=== PATIENT | male | born 1945 | race Caucasian/White ===

== ENCOUNTER 2017-12-21 11:43 | Inpatient (IN) ==
--- NOTE | 2017-12-21 12:35 | XR ---
EXAM DATE: 12/21/2017 12:34 PM EDT AGE/SEX: 72 years / Male INDICATIONS: Pre op bronchoscopy, short of breath. CLINICAL DATA: This is the patient's initial encounter. Patient reports that signs and symptoms have been present for 1 day and indicates a pain score of 0/10. MEDICAL/SURGICAL HISTORY: Diabetes mellitus type II. Pancreatitis. . Endoscopy COMPARISON: POI, XR CHEST PA AND LAT, 11/23/2017. . FINDINGS: A single frontal expiratory view of the chest was performed. Large left pleural effusion. Left basila r density. Right lung clear Mediastinal structures are in the midline. CONCLUSION: Large left pleural effusion and left basilar density. Electronically signed by: Galo Casarez MD 12/21/2017 12:34 PM EDT
[2017-12-21] MEDS ORDERED: Metoprolol Tartrate 25 MG Tablet PO ONE (12:38)
[2017-12-21] MEDS ORDERED: Chlorhexidine Gluconate 2% 1 Pack (2 Cloths) TOPICAL ONE (12:38)
[2017-12-21] MEDS ORDERED: RESP: Albuterol Concentrated 2.5 MG/0.5 ML Neb NEB SCH (12:45)
[2017-12-21] MEDS ORDERED: RESP: Lidocaine PF 4% 5 ML Neb NEB SCH (12:45)
[2017-12-21] MEDS ORDERED: Sodium Chlor 0.9% Inj 500 ML IV.SIG ONE (13:00)
[2017-12-21] MEDS ORDERED: Dextrose 50% in Water 50 ML Vial IV.PUSH PRN (13:54)
--- NOTE | 2017-12-21 14:08 | P.HPIM ---
History of Present Illness Primary Care Physician: Galo Paniagua Chief Complaint: Cough History of Present Illness: This patient is a 72-year-old male with a diagnosis of diabetes mellitus type 2. Patient follows up with doggy daycare activities director Dr. Staton and was initially evaluated in mid September due to a large left-sided pleural effusion. At that time the patient had a thoracentesis done and results of the pleural fluid analysis were concerning for malignancy. After initial thoracentesis the patient's left- sided pleural effusion reaccumulated approximately 5 weeks after requiring another thoracentesis. He was seen in the radiology outpatient procedure unit today by Dr. Staton for a bronchoscopy however an x-ray prior to the procedure showed reaccumulation of the effusion on the left side. The patient is an active individual and is currently asymptomatic without any complaints of shortness of breath. I was called by Dr. Staton to evaluate the patient and admit him given the large left-sided pleural effusion which is likely malignant. Patient denies any chest pain, no diarrhea, no fevers or chills. Past medical history diabetes mellitus type 2 Past surgical history none Family history noncontributory Social history the patient previously smoked possibly 1 pack/day for almost 10 years however quit 38 years ago. He drinks 1-2 beers per week. He denies any history of drug use Review of Systems All other systems reviewed negative except as stated in HPI PMF - History History Provided By: Patient - Medical History Medical History: Medical History (Last Updated 12/17/17 @ 11:39 by Patti August RN) Diabetes Gastritis Hx of hepatitis Hx of laceration of skin Hx of pancreatitis Hx of pleural effusion Mass of lung Teeth missing Wears glasses - Surgical History Surgical History: Surgical History (Last Updated 12/17/17 @ 11:19 by Patti August RN) History of esophagogastroduodenoscopy (EGD) Hx of colonoscopy - Tobacco History Second Hand Smoke Exposure: No Smoking Status: Never smoker - Alcohol History How Often Do You Have a Drink Containing Alcohol: 2 to 4 times a month - Substance Use History Substance History: No History of Abuse - Travel History Recent Travel in the [facility] Within the Last 8 Weeks: No Recent Travel Out of the Country Within the Last 8 Weeks: No Medications and Allergies Active Medications: Active Medications Albuterol (Albuterol Concentrated Neb) 2.5 mg NEB TABLET TECHNICIAN BERRY Stop: 12/25/17 12:44 Dextrose (D50w Vial) 50 ml IV.PUSH UNSCH PRN PRN Reason: PER HYPOGLYCEMIA PROTOCOL Glucagon (Glucagon Inj) 1 mg OTHER PRN PRN PRN Reason: for Hypoglycemia Protocol Dextrose/Sodium Chloride (D5w/1/2 Ns Inj) 1,000 mls @ 30 mls/hr IV.CONT .Q24H BERRY Lactated Ringer's (Lr 1000 Ml Inj) 1,000 mls @ 30 mls/hr IV.SIG .Q24H BERRY Stop: 12/22/17 12:44 Sodium Chloride (Ns Inj) 500 mls @ 30 mls/hr IV.SIG .Q10H ONE Stop: 12/22/17 05:39 Insulin Aspart (Novolog Insulin Correctional Sugar Inj) 0 unit SQ ACHS BERRY; Protocol Lidocaine HCl (Lidocaine Pf 4% Neb) 3 ml NEB TABLET TECHNICIAN BERRY Stop: 12/25/17 12:44 Allergies Allergy/AdvReac Type Severity Reaction Status Date / Time shellfish derived Allergy Severe Vomiting Verified 12/21/17 11:59 Home Medications Medication Instructions Recorded Confirmed Type ascorbate [id number] [Vitamin 2 gm PO DAILY 12/17/17 12/21/17 History C] cholecalciferol (vitamin D3) 5,000 unit PO DAILY 12/17/17 12/21/17 History [Vitamin D3] cinnamon bark [Cinnamon] 2 cap PO DAILY 12/17/17 12/21/17 History coenzyme Q10 [Co Q-10] 100 mg PO DAILY 12/17/17 12/21/17 History metformin 500 mg PO BID 12/17/17 12/21/17 History vitamin B complex 1 tab PO DAILY 12/17/17 12/21/17 History Exam Vital signs: Vital Signs 12/21/17 11:59 Temperature 98.4 F Pulse Rate 84 Respiratory Rate 18 Blood Pressure 152/92 H Pulse Oximetry 95 Intake & Output 12/20/17 12/21/17 12/21/17 18:59 06:59 18:59 Weight 64.864 kg Other: Weight On Admission 64.864 kg Narrative: General patient in no acute distress HEENT extraocular movements are intact, clear oropharyngeal mucosa, no JVD Cardiovascular S1-S2 audible, RRR, no murmurs rubs or gallops Respiratory right-sided is clear to auscultation, decreased breath sounds at the left mid and lower lung. Abdomen soft, nontender, nondistended, normal bowel sounds Extremities no edema 2+ distal pulses in bilateral upper and lower extremities Neuro no neurological deficits. Patient can move all 4 extremities and his sensation is intact bilaterally. Results - Imaging Impressions Chest X-Ray 12/21/17 11:55 CONCLUSION: Large left pleural effusion and left basilar density. Caprini VTE Risk Assessment Caprini VTE Risk Assessment: Moderate/High Risk (score >= 2) Caprini Risk Assessment Model: Point Value = 1 Point Value = 2 Point Value = 3 Point Value = 5 Age 41-60 Minor surgery BMI > 25 kg/m2 Swollen legs Varicose veins or History of unexplained or recurrent spontaneous Oral contraceptives or hormone replacement Sepsis (< 1 month) Serious lung disease, including pneumonia (< 1 month) Abnormal pulmonary function Acute myocardial infarction Congestive heart failure (< 1 month) History of inflammatory bowel disease Medical patient at bed rest Age 61-74 Arthroscopic surgery Major open surgery (> 45 min) Laparoscopic surgery (> 45 min) Malignancy Confined to bed (> 72 hours) Immobilizing plaster cast Central venous access Age >= 75 History of VTE Family history of VTE Factor V Leiden Prothrombin [id number] Lupus anticoagulant Anticardiolipin antibodies Elevated serum homocysteine Heparin-induced thrombocytopenia Other congenital or acquired thrombophilia Stroke (< 1 month) Elective arthroplasty Hip, pelvis, or leg fracture Acute spinal cord injury (< 1 month) Prophylaxis Regimen: Total Risk Factor Score Risk Level Prophylaxis Regimen 0-1 Low Early ambulation 2 Moderate Order ONE of the following: *Sequential Compression Device (SCD) *Heparin 5000 units SQ BID 3-4 Higher Order ONE of the following medications: *Heparin 5000 units SQ TID *Enoxaparin/Lovenox 40 mg SQ daily (WT < 150 kg, CrCl > 30 mL/min) *Enoxaparin/Lovenox 30 mg SQ daily (WT < 150 kg, CrCl > 10-29 mL/min) *Enoxaparin/Lovenox 30 mg SQ BID (WT < 150 kg, CrCl > 30 mL/min) AND/OR *Sequential Compression Device (SCD) 5 or more Highest Order ONE of the following medications: *Heparin 5000 units SQ TID (Preferred with Epidurals) *Enoxaparin/Lovenox 40 mg SQ daily (WT < 150 kg, CrCl > 30 mL/min) *Enoxaparin/Lovenox 30 mg SQ daily (WT < 150 kg, CrCl > 10-29 mL/min) *Enoxaparin/Lovenox 30 mg SQ BID (WT < 150 kg, CrCl > 30 mL/min) AND *Sequential Compression Device (SCD) Assessment and Plan - Plan This patient is a 72-year-old male with a diagnosis of diabetes mellitus type 2. Patient follows up with doggy daycare activities director Dr. Staton and was initially evaluated in mid September due to a large left-sided pleural effusion. At that time the patient had a thoracentesis done and results of the pleural fluid analysis were concerning for malignancy. After initial thoracentesis the patient's left- sided pleural effusion reaccumulated approximately 5 weeks after requiring another thoracentesis. He was seen in the radiology outpatient procedure unit today by Dr. Staton for a bronchoscopy however an x-ray prior to the procedure showed reaccumulation of the effusion on the left side. The patient is an active individual and is currently asymptomatic without any complaints of shortness of breath. I was called by Dr. Staton to evaluate the patient and admit him given the large left-sided pleural effusion which is likely malignant. 1. Large recurrent left-sided pleural effusion As mentioned above the patient was scheduled for bronchoscopy today however chest x-ray showed a large recurrent left-sided pleural effusion. Dr. Staton has discussed the case with thoracic surgery who will evaluate the patient today for pleuroscopy. A consult was placed with thoracic surgery and I will follow-up with the recommendations. The patient is currently on room air with an O2 saturation of 95%. He currently does not have any complaints of shortness of breath. We will continue to monitor the patient and his oxygen saturation level. We will wait for recommendations from thoracic surgery. Labs ordered including CBC, BMP, PT/INR. 2. Diabetes mellitus type 2 Low-dose insulin sliding scale. DVT prophylaxis, no pharmacotherapy for DVT prophylaxis as the patient may possibly undergo a procedure today. H&P: Quality - VTE Deep Vein Thrombosis/Pulmonary Embolism Present on Admission: No
[2017-12-21] MEDS: Dextrose 5%/NaCl 0.45% Inj 1,000 ML IV.CONT SCH (15:44)
--- NOTE | 2017-12-21 19:06 | MB ---
cc: Umer Staton MD, Murthy MD DATE: 12/21/2017 HISTORY OF PRESENT ILLNESS: Mr. Deleon is a 80-year-old white male whom I have known for the last 6 weeks or so, originally presented with a large left pleural effusion. 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 He has subsequently been readmitted as an outpatient, twice for recurrent effusion. I spoke with his oncologist, Dr. Vasquez, about a week ago, at which time apparently they did not have enough cells from the pleural fluid to do biologic markers. For that reason, we were planning on doing a bronchoscopy on him to try to obtain additional tissue. However, the patient has had some increase in shortness of breath and in light of the prior rapid recurrence of fluid, we did a chest x-ray today, which revealed a very large left pleural effusion, almost total opacification on the left. For this reason, the bronchoscopy was canceled and the patient is being admitted. I spoke to Dr. Anitra Richardson from thoracic surgery, as I think it would be more helpful to do a pleuroscopy, possibly obtain additional tissue by that means for molecular markers, and also do a pleurodesis to prevent this reaccumulation of fluid. The patient is being admitted by the hospitalist. At the time of the admission, I saw the patient in the radiology outpatient unit. He was awake, alert, comfortable with normal saturations. No significant pain or shortness of breath at rest. He was a former smoker, but quite minimal, only about 5-6 years, a pack per day, quit smoking over 30 years ago. ADDITIONAL PAST MEDICAL HISTORY: Type 2 diabetes, pancreatitis, not alcohol related. SOCIAL HISTORY: , living with his . Drinks 1-2 beers a week. Smoking noted above. They do have a cat and dog at home. He enjoys motorcycling. He is a retired senior electrical design engineer. CURRENT MEDICATIONS: 1. Metformin. 2. Multiple vitamin. ALLERGIES: SHELLFISH. REVIEW OF SYSTEMS: No chest pain. No hemoptysis. No fever, no increased edema. PHYSICAL EXAMINATION: GENERAL: Awake, alert. VITAL SIGNS: Patient is afebrile, pulse is 80, respirations are 18 at rest. No adenopathy palpable in the neck or supraclavicular region. Absent breath sounds on the left. Regular rhythm. No significant edema or cyanosis. DISCUSSION: Mr. Deleon presents with known adenocarcinoma and pleural fluid on the left, but now rapid reaccumulation again. I think a definitive procedure to sclerose the left pleural space would be helpful and at the same time, it may be possible to do pleural biopsies if disease is noted at pleuroscopy, and provide adequate tissue for molecular markers. I have reviewed this plan with Mr. Deleon and his , they are agreeable. I have also spoken to Dr. Richardson and Dr. Hinkle, who will be admitting. Further diagnostic and/or therapeutic intervention will depend on these studies and his ongoing clinical course. R. MD HARISH Snow/alejandra/patricia , 04:24 PM , 04:31 PM
[2017-12-21] MEDS: Insulin NovoLOG Aspart Correctional Sugar Inj SQ SCH ×2 (19:54→21:50)
[2017-12-21 21:28] LABS: Baso % (Auto) 0.3 % (0.0-2.0); Eos # (Auto) 0.2 th/mm3 (0.0-0.4); Eos % (Auto) 2.1 % (0.0-4.0); Hematocrit 39.7 % (39.0-51.0); Hemoglobin 13.9 gm/dL (13.0-17.0); Lymph # (Auto) 1.6 th/mm3 (1.0-4.8); Lymph % (Auto) 21.8 % (9.0-44.0); Mean Corpuscular Hemoglobin 32.2 pg (27.0-34.0); Mean Platelet Volume 9.1 fL (7.0-11.0); Mono # (Auto) 0.6 th/mm3 (0.0-0.9); Mono % (Auto) 7.8 % (0.0-8.0); Platelet Count 173 th/mm3 (150-450); Red Blood Count 4.32 mil/mm3 (4.50-5.90); Red Cell Distribution Width 13.1 % (11.6-17.2); White Blood Count 7.3 th/mm3 (4.0-11.0)
[2017-12-21 21:38] LABS: Prothrombin Time 10.5 sec (9.8-11.6)
[2017-12-21 21:44] LABS: Anion Gap 8 meq/L (5-15); Blood Urea Nitrogen 10 mg/dL (7-18); Calcium 9.4 mg/dL (8.5-10.1); Carbon Dioxide 28.1 meq/L (21.0-32.0); Chloride 103 meq/L (98-107); Glomerular Filtration Rate Greater Than 89 mL/min (>89); Glucose,Random 156 mg/dL (74-106); Magnesium 2.1 mg/dL (1.5-2.5); Potassium 4.2 meq/L (3.5-5.1); Sodium 139 meq/L (136-145)
[2017-12-22] MEDS: Insulin NovoLOG Aspart Correctional Sugar Inj SQ SCH ×4 (10:17→22:38)
[2017-12-22] MEDS ORDERED: Sodium Chloride 0.9% Irr Bot 500 ML, ceFAZolin Inj 500 MG IRRIGATION SCH ×2 (13:15)
[2017-12-22] MEDS ORDERED: Chlorhexidine 4% Topical 120 APPLIC/120 ML Bottle TOPICAL SCH (13:15)
[2017-12-22] MEDS ORDERED: ceFAZolin Inj 2,000 MG in Sodium Chlor 0.9% Inj 80 ML IV.SIG SCH (14:00)
--- NOTE | 2017-12-22 14:52 | MB ---
cc: Shirlene Richardson MD DATE: 12/22/2017 HISTORY OF PRESENT ILLNESS: A patient of Dr. Adams Staton, Dr. Jose Vasquez and also Tanmay Hernandez, nurse practitioner, who initially was seen by the primary care on 09/30/2017 for a checkup. Apparently, he had some abnormal breath sounds and was sent for chest x-ray. The radiologist was reading the chest x-ray and notified the patient that he needed to go to the emergency department. The patient had been feeling bloated, had trouble eating. He was treated for some duodenitis. They did a CTA scan of the lung and found a lesion in his left lung, concern for metastatic disease. He underwent a thoracentesis, which drained 3 liters at that time ,and then a second time, he had another 2.2 liters drained about 3 weeks ago. The patient was brought in outpatient for a possible bronchoscopy. The x-ray revealed a very large left effusion with almost total opacification on the left. We were consulted to evaluate for thorascopic drainage of the pleural effusion, pleural biopsy and pleurodesis. PAST MEDICAL HISTORY: Includes type 2 diabetes, pancreatitis, hepatitis A in the past. PAST SURGICAL HISTORY: None. ALLERGIES: SHELLFISH. HOME MEDICATIONS: Include: 1. Metformin. 2. Multivitamin. FAMILY HISTORY: Father from old age. Mother from lupus lung. Brother from liver cancer. SOCIAL HISTORY: The patient is and lives with his . Drinks 1-2 beers a week. Smoked for about 6 years, 1 pack per day, quit over 30 years ago. Retired from electrical engineering. Enjoys motorcycle riding. He had traveled to [email or web address] in May for 2 weeks. REVIEW OF SYSTEMS: GENERAL: No night sweats, fever, heat or cold intolerance. SKIN: No psoriasis, itching or hives. HEENT: No blurred vision, hearing loss. RESPIRATORY: Positive from some occasional shortness of breath. CARDIOTHORACIC: No chest pain. No paroxysmal nocturnal dyspnea. No orthopnea. GASTROINTESTINAL: No further diarrhea, vomiting or constipation. GENITOURINARY: No burning, frequency, urgency. CENTRAL NERVOUS SYSTEM: No history of TIA, CVA or seizure disorder. ENDOCRINOLOGY: Positive for diabetes. PHYSICAL EXAMINATION: VITAL SIGNS: Blood pressure 160/80, heart rate 80, T-max 97.9. GENERAL: The patient is awake, alert, in no acute distress. HEENT: Head is normocephalic, atraumatic. Pupils equal and reactive. Oral mucosa pink, moist. NECK: Supple. No JVD. HEART: Sounds S1, S2. Regular rate and rhythm. No audible rubs, murmurs, gallops. LUNGS: Very diminished in the left lower and middle lobe area. ABDOMEN: Soft, nontender. No masses or organomegaly. EXTREMITIES: No cyanosis, clubbing or edema. LABORATORY DATA: Shows hemoglobin 13.9, hematocrit 39, white cell count 7, platelet count 173. Sodium 139, potassium 4.2, BUN 10, creatinine 0.7. INR 1.0. Chest x-ray showed a large left pleural effusion, left basilar density. IMPRESSION: This is a 72-year-old pleasant male with a large left pleural effusion, prior thoracentesis x 2 with pleural fluid showing adenocarcinoma on the prior fluid exam. PLAN: At this time, the patient is being evaluated and will be scheduled for a left thorascopic exploration to drain pleural effusion, pleural biopsy and pleurodesis for . He will be a third case. He will be n.p.o. after midnight. Dictated by PERCY Huynh I personally interviewed and examined this patient on 12/22/17. He has a malignant left pleural effusion and more tissue is needed for pathology. He also would benefit from drainage and pleurodesis. I spent ~30 minutes with him and his discussing the plan for surgery and he agrees to proceed. MD OZ Huerta/rita , 01:14 PM , 01:23 PM LIBBY
[2017-12-22] MEDS: Dextrose 5%/NaCl 0.45% Inj 1,000 ML IV.CONT SCH (19:42)
[2017-12-23] MEDS ORDERED: Sugammadex Inj 200 MG/2 ML Vial IV.PUSH ONE (07:59)
[2017-12-23] MEDS ORDERED: Bupivacaine 0.5% Inj 50 ML MDV Vial ONE (08:04)
[2017-12-23] MEDS ORDERED: ceFAZolin 2 GM Premix Inj 2 GM/50 ML PIGGYBACK IV.SIG ONE (08:05)
[2017-12-23] MEDS ORDERED: Sodium Chlor 0.9% Inj 500 ML IV.CONT ONE (08:30)
[2017-12-23] MEDS ORDERED: Metoprolol Tartrate 25 MG Tablet PO ONE (08:30)
[2017-12-23] MEDS ORDERED: Chlorhexidine Gluconate 2% 1 Pack (2 Cloths) TOPICAL ONE (08:30)
[2017-12-23] MEDS ORDERED: Talc Aerosol Sterile 4 GM/30 GM Aerosol Can I-PLEURAL ONE (09:29)
[2017-12-23] MEDS ORDERED: Bisacodyl 10 MG Supp RECTAL PRN (11:43)
[2017-12-23] MEDS ORDERED: Post-op Orders (for Pharmacy) OTHER STA (11:43)
--- NOTE | 2017-12-23 11:52 | P.OP ---
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 A small posterior port incision was performed and electrocautery was used to obtain hemostasis and carry the dissection down through the fascia. A 22G seeker needle was used initially posteriorly and serosanguious fluid was aspirated. A port was initially placed posteriorly followed by the camera. Visualization was very good. Overall, 1400 ml of serosanguinous effusion was drained. Fluid was submitted for cytology. The patient had a prior specimen with adenocarcinoma. A second anterior port was positioned at ~6th intercostal space. Exploration of the left hemithorax was significant for hyperemic pleura with diffuse tumor studding. Pleural biopsies were performed. Pleural biopsies were sent to Pathology. A talc pleuradesis was performed through both ports. A 28F chest tube was positioned through the anterior port, and secured with a 0-silk suture. An air leak was sealed with Tisseel. The lung was ventilated and no significant air leaks were found. The subcutaneous tissues of the posterior port was approximated running 2-0 Vicryl suture and the skin was approximated using running 4-0 Monocryl subcuticular stitch. All sponge and history counts were correct at the close the procedure and the patient was transferred to the PACU for recovery purposes.
[2017-12-23] MEDS ORDERED: fentaNYL Citrate Inj 100 MCG/2 ML Ampul ONE (12:16)
[2017-12-23] MEDS ORDERED: *Meperidine Inj 25 MG/ML Vial PERIprocedural Use ONLY ONE (12:21)
--- NOTE | 2017-12-23 12:57 | XR ---
EXAM DATE: 12/23/2017 12:49 PM EDT AGE/SEX: 72 years / Male INDICATIONS: Post-op thoracoscopy with pleurodesis. CLINICAL DATA: This is the patient's subsequent encounter. Patient reports that signs and symptoms h ave been present for 3 days and indicates a pain score of 0/10. MEDICAL/SURGICAL HISTORY: Diabetes mellitus type II. None. COMPARISON: [facility] [place], CHEST EXPIRATION ONLY, 12/21/2017. . FINDINGS: The patient has left-sided chest tube. There is left-sided pneumothorax inferiorly and laterally. The some atelectasis right lower lobe. No right-sided pneumothorax identified. CONCLUSION: Chest tube and pneumothorax on the left side. Pneumothorax measures approximately 1 centimeter across in the inferior two thirds of the chest. Electronically signed by: Romero Blackmon MD 12/23/2017 12:56 PM EDT
[2017-12-23] MEDS: Insulin NovoLOG Aspart Correctional Sugar Inj SQ SCH ×2 (14:20→18:40)
[2017-12-23] MEDS: ceFAZolin 1 GM Premix Inj 1 GM/50 ML FROZ.PIGGY IV.SIG SCH (18:52)
[2017-12-23] MEDS: Senna/Docusate Sodium 8.6/50 MG Tablet PO SCH (21:21)
[2017-12-24] MEDS: ceFAZolin 1 GM Premix Inj 1 GM/50 ML FROZ.PIGGY IV.SIG SCH ×2 (02:51→11:00)
[2017-12-24 05:02] LABS: Baso % (Auto) 0.1 % (0.0-2.0); Eos % (Auto) 0.1 % (0.0-4.0); Hematocrit 41.3 % (39.0-51.0); Lymph # (Auto) 1.2 th/mm3 (1.0-4.8); Lymph % (Auto) 11.5 % (9.0-44.0); Mean Corpuscular HGB Conc 33.9 % (32.0-36.0); Mean Corpuscular Hemoglobin 31.8 pg (27.0-34.0); Mean Corpuscular Volume 93.8 fL (80.0-100.0); Mono # (Auto) 0.8 th/mm3 (0.0-0.9); Mono % (Auto) 7.5 % (0.0-8.0); Neut # (Auto) 8.5 th/mm3 (1.8-7.7); Neut % (Auto) 80.8 % (16.0-70.0); Platelet Count 173 th/mm3 (150-450); Red Cell Distribution Width 13.1 % (11.6-17.2); White Blood Count 10.6 th/mm3 (4.0-11.0)
[2017-12-24 05:20] LABS: Anion Gap 8 meq/L (5-15); Blood Urea Nitrogen 8 mg/dL (7-18); Calcium 8.8 mg/dL (8.5-10.1); Carbon Dioxide 27.1 meq/L (21.0-32.0); Chloride 103 meq/L (98-107); Glomerular Filtration Rate Greater Than 89 mL/min (>89); Glucose,Random 151 mg/dL (74-106); Sodium 138 meq/L (136-145)
--- NOTE | 2017-12-24 05:46 | XR ---
EXAM DATE: 12/24/2017 5:33 AM EDT AGE/SEX: 72 years / Male INDICATIONS: Shortness of breath CLINICAL DATA: This is the patient's subsequent encounter. Patient reports that signs and symptoms h ave been present for 4 - 6 days and indicates a pain score of 0/10. MEDICAL/SURGICAL HISTORY: Diabetes mellitus type II. None. COMPARISON: C, CHEST 1V SINGLE AP, 12/23/2017. . FINDINGS: The cardiac silhouette is normal in transverse diameter. There is an unchanged pneumothorax at the l eft base with left chest tube present. There is subsegmental atelectasis in the both bases. There are no signs of tension. CONCLUSION: Unchanged left pneumothorax without tension Electronically signed by: Colten Vicente MD 12/24/2017 5:44 AM EDT
[2017-12-24] MEDS: Insulin NovoLOG Aspart Correctional Sugar Inj SQ SCH ×3 (08:31→16:50)
--- NOTE | 2017-12-24 10:14 | P.PNCV ---
- Note Subjective/Hospital Course: Dr. Adams Staton, Dr. Jose Vasquez and also Tanmay Hernandez, nurse practitioner, who initially was seen by the primary care on 09/30/2017 for a checkup. Apparently, he had some abnormal breath sounds and was sent for chest x-ray. The radiologist was reading the chest x-ray and notified the patient that he needed to go to the emergency department. The patient had been feeling bloated, had trouble eating. He was treated for some duodenitis. They did a CTA scan of the lung and found a lesion in his left lung, concern for metastatic disease. He underwent a thoracentesis, which drained 3 liters at that time ,and then a second time, he had another 2.2 liters drained about 3 weeks ago. The patient was brought in outpatient for a possible bronchoscopy. The x-ray revealed a very large left effusion with almost total opacification on the left. We were consulted to evaluate for thorascopic drainage of the pleural effusion, pleural biopsy and pleurodesis. PAST MEDICAL HISTORY: Includes type 2 diabetes, pancreatitis, hepatitis A in the past. 12/23 surgery: Left thoracoscopic exploration for drainage of malignant pleural effusion, pleural biopsies, talc pleurodesis 12/24 chest tube drained 300cc/ 12 hrs / serous drainage, pain controlled / leave tube to suction for now OOB ambulate pulm toileting Objective: Vital Signs - 24 hr 12/23/17 12:02 12/23/17 12:15 12/23/17 12:30 Temperature 96.6 F L Pulse Rate 74 72 74 Respiratory Rate 20 19 17 Blood Pressure 140/73 126/69 124/72 Pulse Oximetry 99 99 98 12/23/17 12:45 12/23/17 13:00 12/23/17 13:04 Temperature Pulse Rate 71 73 Respiratory Rate 19 15 Blood Pressure 133/69 130/70 Pulse Oximetry 98 97 99 12/23/17 13:30 12/23/17 14:00 12/23/17 15:00 Temperature Pulse Rate 72 78 75 Respiratory Rate 17 19 17 Blood Pressure 129/67 129/72 138/76 Pulse Oximetry 96 97 98 12/23/17 16:00 12/23/17 17:00 12/23/17 18:00 Temperature Pulse Rate 74 81 90 Respiratory Rate 17 20 16 Blood Pressure 141/67 H 145/74 H 117/63 Pulse Oximetry 99 97 96 12/23/17 18:30 12/23/17 19:45 12/23/17 20:00 Temperature 98 F 98.2 F 98.2 F Pulse Rate 81 70 77 Respiratory Rate 17 18 17 Blood Pressure 121/58 L 148/64 H 139/65 Pulse Oximetry 96 92 L 93 L 12/23/17 21:00 12/24/17 00:00 12/24/17 03:00 Temperature 98.2 F 98.0 F 98.1 F Pulse Rate 93 H 97 H 98 H Respiratory Rate 18 18 18 Blood Pressure 151/70 H 141/67 H 159/72 H Pulse Oximetry 94 L 94 L 94 L 12/24/17 08:00 Temperature 98.8 F Pulse Rate 91 H Respiratory Rate 18 Blood Pressure 136/72 Pulse Oximetry 93 L GENERAL: A&O x 3 SKIN: Warm and dry. left posterior incision intact / HEAD: Normocephalic. EYES: No scleral icterus. No injection or drainage. NECK: Supple, trachea midline. No JVD or lymphadenopathy. CARDIOVASCULAR: Regular rate and rhythm without murmurs, gallops, or rubs. RESPIRATORY: Breath sounds equal bilaterally. No accessory muscle use. diminished left lower lobe, left chest tube to wall suction, no air leak GASTROINTESTINAL: Abdomen soft, non-tender, nondistended. MUSCULOSKELETAL: No cyanosis, or edema. BACK: Nontender without obvious deformity. No CVA tenderness. Labs: Laboratory Results - last 12 hr 12/23/17 12/24/17 12/24/17 22:07 04:05 04:05 WBC 10.6 RBC 4.40 L Hgb 14.0 Hct 41.3 MCV 93.8 MCH 31.8 MCHC 33.9 RDW 13.1 Plt Count 173 MPV 9.0 Neut % (Auto) 80.8 H Lymph % (Auto) 11.5 Divide % (Auto) 7.5 Eos % (Auto) 0.1 Baso % (Auto) 0.1 Neut # (Auto) 8.5 H Lymph # (Auto) 1.2 Divide # (Auto) 0.8 Eos # (Auto) 0.0 Baso # (Auto) 0.0 WBC Differential . Differential Comment Auto diff final Sodium 138 Potassium 4.0 Chloride 103 Carbon Dioxide 27.1 Anion Gap 8 BUN 8 Creatinine 0.73 Estimated GFR Greater than 89 POC Glucose 143 H Random Glucose 151 H Calcium 8.8 12/24/17 08:31 WBC RBC Hgb Hct MCV MCH MCHC RDW Plt Count MPV Neut % (Auto) Lymph % (Auto) Divide % (Auto) Eos % (Auto) Baso % (Auto) Neut # (Auto) Lymph # (Auto) Divide # (Auto) Eos # (Auto) Baso # (Auto) WBC Differential Differential Comment Sodium Potassium Chloride Carbon Dioxide Anion Gap BUN Creatinine Estimated GFR POC Glucose 165 H Random Glucose Calcium Result Diagrams: 12/24/17 04:05 12/24/17 04:05 Telemetry: NSR - Plan (1) S/P thoracotomy Plan: pain control await path leave chest tube in pulm toileting OOB ambulate (4) Diabetes Plan: diabetic diet / insulin sliding scale (4) Diabetes Qualifiers: Diabetes mellitus type: type 2
[2017-12-24] MEDS: Senna/Docusate Sodium 8.6/50 MG Tablet PO SCH ×2 (11:23→20:24)
[2017-12-24] MEDS: Enoxaparin Inj 30 MG/0.3 ML Syringe SQ SCH (15:01)
[2017-12-25] MEDS: Senna/Docusate Sodium 8.6/50 MG Tablet PO SCH ×2 (09:57→21:32)
--- NOTE | 2017-12-25 11:08 | P.PNCV ---
- Note Subjective/Hospital Course: Dr. Adams Staton, Dr. Jose Vasquez and also Tanmay Hernandez, nurse practitioner, who initially was seen by the primary care on 09/30/2017 for a checkup. Apparently, he had some abnormal breath sounds and was sent for chest x-ray. The radiologist was reading the chest x-ray and notified the patient that he needed to go to the emergency department. The patient had been feeling bloated, had trouble eating. He was treated for some duodenitis. They did a CTA scan of the lung and found a lesion in his left lung, concern for metastatic disease. He underwent a thoracentesis, which drained 3 liters at that time ,and then a second time, he had another 2.2 liters drained about 3 weeks ago. The patient was brought in outpatient for a possible bronchoscopy. The x-ray revealed a very large left effusion with almost total opacification on the left. We were consulted to evaluate for thorascopic drainage of the pleural effusion, pleural biopsy and pleurodesis. PAST MEDICAL HISTORY: Includes type 2 diabetes, pancreatitis, hepatitis A in the past. 12/23 surgery: Left thoracoscopic exploration for drainage of malignant pleural effusion, pleural biopsies, talc pleurodesis 12/24 chest tube drained 300cc/ 12 hrs / serous drainage, pain controlled / leave tube to suction for now OOB ambulate pulm toileting 12/25 Continued significant serous output from his chest tube Maintain chest tube to suction for now Reassess in a.m. Objective: Vital Signs - 24 hr 12/24/17 12:00 12/24/17 13:00 12/24/17 14:00 Temperature 98.2 F Pulse Rate 100 H 106 H 104 H Respiratory Rate 18 Blood Pressure 120/65 Pulse Oximetry 96 12/24/17 15:00 12/24/17 16:00 12/24/17 19:32 Temperature 98.1 F 98 F Pulse Rate 98 H 104 H 96 H Respiratory Rate 18 20 Blood Pressure 140/67 136/69 Pulse Oximetry 94 L 97 12/24/17 20:00 12/25/17 00:00 12/25/17 04:00 Temperature 98.8 F 98.6 F Pulse Rate 103 H 108 H 88 Respiratory Rate 18 19 Blood Pressure 138/74 127/59 L Pulse Oximetry 95 97 12/25/17 08:00 12/25/17 09:00 Temperature 98.8 F Pulse Rate 75 75 Respiratory Rate 20 Blood Pressure 110/60 Pulse Oximetry 96 Labs: Laboratory Results - last 12 hr 12/25/17 08:00 POC Glucose 132 H Result Diagrams: 12/24/17 04:05 12/24/17 04:05 - Plan (1) S/P thoracotomy Plan: pain control await path leave chest tube in pulm toileting OOB ambulate (4) Diabetes Plan: diabetic diet / insulin sliding scale (4) Diabetes Qualifiers: Diabetes mellitus type: type 2
[2017-12-25] MEDS: Insulin NovoLOG Aspart Correctional Sugar Inj SQ SCH ×6 (12:00→21:30)
[2017-12-25] MEDS: Enoxaparin Inj 30 MG/0.3 ML Syringe SQ SCH (16:53)
[2017-12-25] MEDS: Dextrose 5%/NaCl 0.45% Inj 1,000 ML IV.CONT SCH ×2 (19:37→20:29)
[2017-12-26] MEDS: Senna/Docusate Sodium 8.6/50 MG Tablet PO SCH ×2 (09:44→21:20)
--- NOTE | 2017-12-26 09:47 | P.PNCV ---
- Note Subjective/Hospital Course: Dr. Adams Staton, Dr. Jose Vasquez and also Tanmay Hernandez, nurse practitioner, who initially was seen by the primary care on 09/30/2017 for a checkup. Apparently, he had some abnormal breath sounds and was sent for chest x-ray. The radiologist was reading the chest x-ray and notified the patient that he needed to go to the emergency department. The patient had been feeling bloated, had trouble eating. He was treated for some duodenitis. They did a CTA scan of the lung and found a lesion in his left lung, concern for metastatic disease. He underwent a thoracentesis, which drained 3 liters at that time ,and then a second time, he had another 2.2 liters drained about 3 weeks ago. The patient was brought in outpatient for a possible bronchoscopy. The x-ray revealed a very large left effusion with almost total opacification on the left. We were consulted to evaluate for thorascopic drainage of the pleural effusion, pleural biopsy and pleurodesis. PAST MEDICAL HISTORY: Includes type 2 diabetes, pancreatitis, hepatitis A in the past. 12/23 surgery: Left thoracoscopic exploration for drainage of malignant pleural effusion, pleural biopsies, talc pleurodesis 12/24 chest tube drained 300cc/ 12 hrs / serous drainage, pain controlled / leave tube to suction for now OOB ambulate pulm toileting 12/25 Continued significant serous output from his chest tube Maintain chest tube to suction for now Reassess in a.m. 12/26 Chest tube with 300 mL's overnight. Keep in place Ambulate and incentive spirometry Reevaluate tomorrow Objective: Vital Signs - 24 hr 12/25/17 11:28 12/25/17 12:00 12/25/17 12:28 Temperature 98.7 F Pulse Rate 90 85 110 H Respiratory Rate 18 Blood Pressure 100/58 L Pulse Oximetry 95 12/25/17 13:28 12/25/17 14:28 12/25/17 15:28 Temperature Pulse Rate 98 H 100 H 98 H Respiratory Rate Blood Pressure Pulse Oximetry 12/25/17 15:43 12/25/17 16:28 12/25/17 17:00 Temperature 98.1 F Pulse Rate 99 H 100 H 100 H Respiratory Rate 18 Blood Pressure 101/61 Pulse Oximetry 95 12/25/17 17:28 12/25/17 18:00 12/25/17 19:00 Temperature Pulse Rate 98 H 112 H 101 H Respiratory Rate Blood Pressure Pulse Oximetry 12/25/17 20:00 12/25/17 21:00 12/25/17 22:00 Temperature 99.9 F H Pulse Rate 112 H 94 H 96 H Respiratory Rate 18 Blood Pressure 110/61 Pulse Oximetry 95 12/25/17 23:00 12/25/17 23:22 12/26/17 00:00 Temperature 99.5 F Pulse Rate 96 H 97 H 88 Respiratory Rate 18 Blood Pressure 115/62 Pulse Oximetry 95 12/26/17 01:00 EDT 12/26/17 02:00 12/26/17 03:00 Temperature Pulse Rate 86 84 83 Respiratory Rate Blood Pressure Pulse Oximetry 12/26/17 03:43 12/26/17 04:00 12/26/17 05:00 Temperature 98.5 F Pulse Rate 90 90 80 Respiratory Rate 18 Blood Pressure 121/73 Pulse Oximetry 96 12/26/17 06:00 Temperature Pulse Rate 74 Respiratory Rate Blood Pressure Pulse Oximetry Labs: Laboratory Results - last 12 hr 12/26/17 07:43 POC Glucose 137 H Result Diagrams: 12/24/17 04:05 12/24/17 04:05 - Plan (1) S/P thoracotomy Plan: pain control await path leave chest tube in pulm toileting OOB ambulate (4) Diabetes Plan: diabetic diet / insulin sliding scale (4) Diabetes Qualifiers: Diabetes mellitus type: type 2
[2017-12-26] MEDS: Insulin NovoLOG Aspart Correctional Sugar Inj SQ SCH ×4 (11:32→21:30)
[2017-12-26] MEDS: Enoxaparin Inj 30 MG/0.3 ML Syringe SQ SCH (11:35)
[2017-12-26] MEDS: Dextrose 5%/NaCl 0.45% Inj 1,000 ML IV.CONT SCH (21:20)
[2017-12-27] MEDS: Senna/Docusate Sodium 8.6/50 MG Tablet PO SCH ×2 (08:52→20:54)
[2017-12-27] MEDS: Insulin NovoLOG Aspart Correctional Sugar Inj SQ SCH ×4 (08:52→23:53)
--- NOTE | 2017-12-27 10:10 | XR ---
EXAM DATE: 12/27/2017 10:05 AM EST AGE/SEX: 72 years / Male INDICATIONS: Evaluate pleural Effusion. Patient complains of chest pain. CLINICAL DATA: This is the patient's initial encounter. Patient reports that signs and symptoms have been present for 3 days and indicates a pain score of 1/10. MEDICAL/SURGICAL HISTORY: . Diabetes. Pancreatitis. . Endoscopy COMPARISON: [facility] [place], CHEST 1V SINGLE AP, 12/24/2017. . FINDINGS: A single AP view of the chest demonstrates minimal left basilar pneumothorax. Left-sided pleural-pare nchymal density. Stable. Right lung clear. Heart mildly enlarged. The cardiomediastinal contours are unremarkable. Osseous structures are intact. CONCLUSION: 1. Stable chest with small left basilar pneumothorax. Electronically signed by: Galo Casarez MD 12/27/2017 10:08 AM EST
--- NOTE | 2017-12-27 10:26 | P.PNCV ---
- Note Subjective/Hospital Course: Dr. Adams Staton, Dr. Jose Vasquez and also Tanmay Hernandez, nurse practitioner, who initially was seen by the primary care on 09/30/2017 for a checkup. Apparently, he had some abnormal breath sounds and was sent for chest x-ray. The radiologist was reading the chest x-ray and notified the patient that he needed to go to the emergency department. The patient had been feeling bloated, had trouble eating. He was treated for some duodenitis. They did a CTA scan of the lung and found a lesion in his left lung, concern for metastatic disease. He underwent a thoracentesis, which drained 3 liters at that time ,and then a second time, he had another 2.2 liters drained about 3 weeks ago. The patient was brought in outpatient for a possible bronchoscopy. The x-ray revealed a very large left effusion with almost total opacification on the left. We were consulted to evaluate for thorascopic drainage of the pleural effusion, pleural biopsy and pleurodesis. PAST MEDICAL HISTORY: Includes type 2 diabetes, pancreatitis, hepatitis A in the past. 12/23 surgery: Left thoracoscopic exploration for drainage of malignant pleural effusion, pleural biopsies, talc pleurodesis 12/24 chest tube drained 300cc/ 12 hrs / serous drainage, pain controlled / leave tube to suction for now OOB ambulate pulm toileting 12/25 Continued significant serous output from his chest tube Maintain chest tube to suction for now Reassess in a.m. 12/26 Chest tube with 300 mL's overnight. Keep in place Ambulate and incentive spirometry Reevaluate tomorrow 12/27 chest drained 125/ 24 hrs eval for possible removal later today continue pulm toileting discussed with Dr Staton path : LEFT PLEURA, BIOPSY: METASTATIC ADENOCARCINOMA, CONSISTENT WITH LUNG PRIMARY. oncologist Dr Jose Vasquez Objective: Vital Signs - 24 hr 12/26/17 11:00 12/26/17 12:00 12/26/17 13:00 Temperature 97.9 F Pulse Rate 90 98 H 98 H Respiratory Rate 18 Blood Pressure 121/60 Pulse Oximetry 12/26/17 14:00 12/26/17 15:00 12/26/17 16:00 Temperature 97.9 F Pulse Rate 100 H 98 H 103 H Respiratory Rate 18 Blood Pressure 121/60 Pulse Oximetry 12/26/17 18:00 12/26/17 19:00 12/26/17 20:00 Temperature 98.7 F Pulse Rate 104 H 98 H 96 H Respiratory Rate 18 Blood Pressure 115/55 L Pulse Oximetry 95 12/26/17 21:00 12/26/17 22:00 12/26/17 23:00 Temperature Pulse Rate 90 92 H 91 H Respiratory Rate Blood Pressure Pulse Oximetry 12/27/17 00:00 12/27/17 01:00 12/27/17 02:00 Temperature 98.3 F Pulse Rate 92 H 90 88 Respiratory Rate 18 Blood Pressure 118/76 Pulse Oximetry 96 12/27/17 03:00 12/27/17 03:57 12/27/17 04:00 Temperature 98.3 F Pulse Rate 84 87 88 Respiratory Rate 16 Blood Pressure 112/61 Pulse Oximetry 96 12/27/17 05:00 12/27/17 06:00 12/27/17 07:00 Temperature Pulse Rate 80 86 92 H Respiratory Rate Blood Pressure Pulse Oximetry 12/27/17 08:00 Temperature 97.9 F Pulse Rate 102 H Respiratory Rate 18 Blood Pressure 105/55 L Pulse Oximetry 96 GENERAL: A&O x 3 SKIN: Warm and dry. incision intact left posterior chest wall HEAD: Normocephalic. EYES: No scleral icterus. No injection or drainage. NECK: Supple, trachea midline. No JVD or lymphadenopathy. CARDIOVASCULAR: Regular rate and rhythm without murmurs, gallops, or rubs. RESPIRATORY: diminished left lower lung / chest tube to wall suction , no air leak Breath sounds equal bilaterally. No accessory muscle use. GASTROINTESTINAL: Abdomen soft, non-tender, nondistended. MUSCULOSKELETAL: No cyanosis, or edema. BACK: Nontender without obvious deformity. No CVA tenderness. Labs: Laboratory Results - last 12 hr 12/27/17 08:50 POC Glucose 211 H Result Diagrams: 12/24/17 04:05 12/24/17 04:05 Telemetry: NSR - Plan (1) S/P thoracotomy Plan: pain control path : LEFT PLEURA, BIOPSY: METASTATIC ADENOCARCINOMA, CONSISTENT WITH LUNG PRIMARY. leave chest tube in / eval for removal later today pulm toileting OOB ambulate (4) Diabetes Plan: diabetic diet / insulin sliding scale (4) Diabetes Qualifiers: Diabetes mellitus type: type 2
[2017-12-27] MEDS: Enoxaparin Inj 30 MG/0.3 ML Syringe SQ SCH (11:16)
--- NOTE | 2017-12-27 13:13 | P.PNIM ---
Subjective Interval history: Patient is in no acute distress. No significant pain near the chest tube site currently. Physical Exam Vital signs: Vital Signs 12/26/17 14:00 12/26/17 15:00 12/26/17 16:00 Temperature 97.9 F Pulse Rate 100 H 98 H 103 H Respiratory Rate 18 Blood Pressure 121/60 Pulse Oximetry 12/26/17 18:00 12/26/17 19:00 12/26/17 20:00 Temperature 98.7 F Pulse Rate 104 H 98 H 96 H Respiratory Rate 18 Blood Pressure 115/55 L Pulse Oximetry 95 12/26/17 21:00 12/26/17 22:00 12/26/17 23:00 Temperature Pulse Rate 90 92 H 91 H Respiratory Rate Blood Pressure Pulse Oximetry 12/27/17 00:00 12/27/17 01:00 12/27/17 02:00 Temperature 98.3 F Pulse Rate 92 H 90 88 Respiratory Rate 18 Blood Pressure 118/76 Pulse Oximetry 96 12/27/17 03:00 12/27/17 03:57 12/27/17 04:00 Temperature 98.3 F Pulse Rate 84 87 88 Respiratory Rate 16 Blood Pressure 112/61 Pulse Oximetry 96 12/27/17 05:00 12/27/17 06:00 12/27/17 07:00 Temperature Pulse Rate 80 86 92 H Respiratory Rate Blood Pressure Pulse Oximetry 12/27/17 08:00 12/27/17 09:00 12/27/17 10:00 Temperature 97.9 F Pulse Rate 100 H 104 H 92 H Respiratory Rate 18 Blood Pressure 105/55 L Pulse Oximetry 96 12/27/17 11:00 12/27/17 12:00 Temperature 97.9 F Pulse Rate 94 H 110 H Respiratory Rate 18 Blood Pressure 123/63 Pulse Oximetry 97 Intake & Output 12/26/17 12/27/17 12/27/17 18:59 06:59 18:59 Intake Total 1080 / 1080 740 / 740 Output Total 1000 / 1000 125 / 125 Balance 80 / 80 615 / 615 Weight 62.2 kg Intake: Oral 1080 / 1080 740 / 740 Output: Urine 1000 / 1000 Chest Tube Drainage 125 / 125 #1 Left 125 / 125 Other: # Voids 4 Date of Last Bowel Movement 12/26/17 12/26/17 12/26/17 # Bowel Movements 1 1 Narrative: General patient in no acute distress HEENT extraocular movements are intact, clear oropharyngeal mucosa, no JVD Cardiovascular S1-S2 audible, RRR, no murmurs rubs or gallops Respiratory decreased breath sounds in the left lung base. Chest tube in place , no signs of infection near the chest tube site. Abdomen soft, nontender, nondistended, normal bowel sounds Extremities no edema 2+ distal pulses in bilateral upper and lower extremities Neuro cranial nerves II through XII intact Results - Labs CBC & Chem 7: 12/24/17 04:05 12/24/17 04:05 Laboratory Results - last 24 hr 12/26/17 12/26/17 12/27/17 16:50 21:29 08:50 POC Glucose 93 134 H 211 H 12/27/17 11:51 POC Glucose 154 H - Imaging Impressions Chest X-Ray 12/27/17 00:00 CONCLUSION: 1. Stable chest with small left basilar pneumothorax. Assessment and Plan - Plan This patient is a 72-year-old male with a diagnosis of diabetes mellitus type 2. Patient follows up with staff development educator Dr. Staton and was initially evaluated in mid September due to a large left-sided pleural effusion. At that time the patient had a thoracentesis done and results of the pleural fluid analysis were concerning for malignancy. After initial thoracentesis the patient's left- sided pleural effusion reaccumulated approximately 5 weeks after requiring another thoracentesis. He was seen in the radiology outpatient procedure unit today by Dr. Staton for a bronchoscopy however an x-ray prior to the procedure showed reaccumulation of the effusion on the left side. 1. Left lung adenocarcinoma with large recurrent left-sided pleural effusion The patient underwent left pleural biopsy which showed metastatic lung adenocarcinoma. Currently has a left-sided chest tube in place draining. Cardiovascular surgery is following the patient and recommends keeping the chest tube in place. They will continue to reevaluate him and possibly remove the chest tube today or tomorrow. Pleurodesis was also performed due to the recurrent left-sided pleural effusion. Heme oncology will be consulted to evaluate the patient today. I have ordered a CBC, BMP. Labs will be followed up. 2. Small pneumothorax the left lung base. Repeat chest x-ray from today shows similar findings from the chest were done a couple days ago which is a small pneumothorax the left lung base. Continue current management as per cardio vascular surgery recommendations. As mentioned above the patient was scheduled for bronchoscopy today however chest x-ray showed a large recurrent left-sided pleural effusion. Dr. Staton has discussed the case with thoracic surgery who will evaluate the patient today for pleuroscopy. A consult was placed with thoracic surgery and I will follow-up with the recommendations. The patient is currently on room air with an O2 saturation of 95%. He currently does not have any complaints of shortness of breath. We will continue to monitor the patient and his oxygen saturation level. We will wait for recommendations from thoracic surgery. Labs ordered including CBC, BMP, PT/INR. [place] as needed for pain. 2. Diabetes mellitus type 2 Low-dose insulin sliding scale. We will adjust his diabetes mellitus type 2 medication regimen as needed. DVT prophylaxis, continue Lovenox.
[2017-12-27 13:51] LABS: Baso % (Auto) 0.4 % (0.0-2.0); Eos # (Auto) 0.1 th/mm3 (0.0-0.4); Eos % (Auto) 1.5 % (0.0-4.0); Hemoglobin 13.3 gm/dL (13.0-17.0); Lymph # (Auto) 1.6 th/mm3 (1.0-4.8); Lymph % (Auto) 19.6 % (9.0-44.0); Mean Corpuscular HGB Conc 35.1 % (32.0-36.0); Mean Corpuscular Hemoglobin 32.7 pg (27.0-34.0); Mean Corpuscular Volume 93.1 fL (80.0-100.0); Mean Platelet Volume 9.1 fL (7.0-11.0); Mono # (Auto) 0.6 th/mm3 (0.0-0.9); Mono % (Auto) 7.5 % (0.0-8.0); Neut # (Auto) 5.9 th/mm3 (1.8-7.7); Platelet Count 233 th/mm3 (150-450); Red Blood Count 4.08 mil/mm3 (4.50-5.90); Red Cell Distribution Width 13.4 % (11.6-17.2); White Blood Count 8.3 th/mm3 (4.0-11.0)
[2017-12-27 14:10] LABS: Calcium 9.2 mg/dL (8.5-10.1); Carbon Dioxide 29.6 meq/L (21.0-32.0); Magnesium 2.1 mg/dL (1.5-2.5); Potassium 4.2 meq/L (3.5-5.1)
[2017-12-27] MEDS: Dextrose 5%/NaCl 0.45% Inj 1,000 ML IV.CONT SCH (14:35)
[2017-12-28] MEDS: Insulin NovoLOG Aspart Correctional Sugar Inj SQ SCH (08:18)
--- NOTE | 2017-12-28 11:36 | XR ---
EXAM DATE: 12/28/2017 11:31 AM EST AGE/SEX: 72 years / Male INDICATIONS: Left chest tube removed. Evaluate for pneumothorax. Patient states he is coughing up ph legm. CLINICAL DATA: This is the patient's subsequent encounter. Patient reports that signs and symptoms h ave been present for 1 week and indicates a pain score of 0/10. MEDICAL/SURGICAL HISTORY: . Diabetes. Pancreatitis. None. Endoscopy COMPARISON: [facility] [place], CHEST 1V SINGLE AP, 12/27/2017. . FINDINGS: The previously seen left chest tube has been removed. Subcutaneous emphysema is seen with a small loc ulated pneumothorax above the costophrenic angle not changed. Left lung base opacity seen may be scar and/or possible atelectasis and/or infiltrate. CONCLUSION: Small loculated pneumothorax above the left costophrenic angle. Electronically signed by: Nasrin Laughlin MD 12/28/2017 11:34 AM EST
--- NOTE | 2017-12-28 12:06 | P.PNCV ---
- Note Subjective/Hospital Course: Dr. Adams Staton, Dr. Jose Vasquez and also Tanmay Hernandez, nurse practitioner, who initially was seen by the primary care on 09/30/2017 for a checkup. Apparently, he had some abnormal breath sounds and was sent for chest x-ray. The radiologist was reading the chest x-ray and notified the patient that he needed to go to the emergency department. The patient had been feeling bloated, had trouble eating. He was treated for some duodenitis. They did a CTA scan of the lung and found a lesion in his left lung, concern for metastatic disease. He underwent a thoracentesis, which drained 3 liters at that time ,and then a second time, he had another 2.2 liters drained about 3 weeks ago. The patient was brought in outpatient for a possible bronchoscopy. The x-ray revealed a very large left effusion with almost total opacification on the left. We were consulted to evaluate for thorascopic drainage of the pleural effusion, pleural biopsy and pleurodesis. PAST MEDICAL HISTORY: Includes type 2 diabetes, pancreatitis, hepatitis A in the past. 12/23 surgery: Left thoracoscopic exploration for drainage of malignant pleural effusion, pleural biopsies, talc pleurodesis 12/24 chest tube drained 300cc/ 12 hrs / serous drainage, pain controlled / leave tube to suction for now OOB ambulate pulm toileting 12/25 Continued significant serous output from his chest tube Maintain chest tube to suction for now Reassess in a.m. 12/26 Chest tube with 300 mL's overnight. Keep in place Ambulate and incentive spirometry Reevaluate tomorrow 12/27 chest drained 125/ 24 hrs eval for possible removal later today continue pulm toileting discussed with Dr Staton path : LEFT PLEURA, BIOPSY: METASTATIC ADENOCARCINOMA, CONSISTENT WITH LUNG PRIMARY. oncologist Dr Jose Vasquez 12/28 pt has appointment with oncologist 01/19 2:20 pm chest tube removed, post CXR: . Left lung base opacity seen may be scar and/or possible atelectasis and/or infiltrate.. Subcutaneous emphysema is seen with a small loculated pneumothorax above the costophrenic angle not changed. stable for discharge/ will repeat CXR on Wednesday , if recurrent effusion , may need to be considered for pleurx cath after being evaluated by Dr Richardson Objective: Vital Signs - 24 hr 12/27/17 13:00 12/27/17 14:00 12/27/17 15:00 Temperature Pulse Rate 104 H 96 H 101 H Respiratory Rate Blood Pressure Pulse Oximetry 12/27/17 16:00 12/27/17 17:00 12/27/17 18:00 Temperature 98.1 F Pulse Rate 100 H 108 H 104 H Respiratory Rate 18 Blood Pressure 107/66 Pulse Oximetry 96 12/27/17 19:00 12/27/17 20:00 12/27/17 20:07 Temperature 98.5 F Pulse Rate 96 H 91 H 96 H Respiratory Rate 19 Blood Pressure 112/63 Pulse Oximetry 97 12/27/17 21:00 12/27/17 22:00 12/27/17 23:00 Temperature Pulse Rate 90 87 93 H Respiratory Rate Blood Pressure Pulse Oximetry 12/28/17 00:00 12/28/17 01:00 12/28/17 02:00 Temperature 98.5 F Pulse Rate 92 H 92 H 105 H Respiratory Rate 18 Blood Pressure 128/62 Pulse Oximetry 97 12/28/17 03:00 12/28/17 04:00 12/28/17 05:00 Temperature 98.4 F Pulse Rate 86 96 H 87 Respiratory Rate 18 Blood Pressure 122/66 Pulse Oximetry 97 12/28/17 06:00 12/28/17 07:00 12/28/17 08:00 Temperature 98.2 F Pulse Rate 77 77 82 Respiratory Rate 18 Blood Pressure 118/64 Pulse Oximetry 95 12/28/17 09:00 12/28/17 10:00 Temperature Pulse Rate 92 H 116 H Respiratory Rate Blood Pressure Pulse Oximetry Labs: Laboratory Results - last 12 hr 12/28/17 12/28/17 08:17 11:38 POC Glucose 139 H 122 H Result Diagrams: 12/27/17 13:27 12/27/17 13:27 - Plan (1) S/P thoracotomy Plan: pain control path : LEFT PLEURA, BIOPSY: METASTATIC ADENOCARCINOMA, CONSISTENT WITH LUNG PRIMARY. chest tube removed/ post CXR stable post instructions given to pt pulm toileting OOB ambulate (4) Diabetes Plan: diabetic diet / insulin sliding scale (4) Diabetes Qualifiers: Diabetes mellitus type: type 2
--- NOTE | 2017-12-28 12:13 | P.DS ---
Date of admission: 12/24/17 11:05 Primary care physician: Galo Paniagua Attending physician on discharge: Maria Luz Rose Anticipated date of discharge: 12/28/17 Brief History from admission: This patient is a 72-year-old male with a diagnosis of diabetes mellitus type 2. Patient follows up with food management aide Dr. Staton and was initially evaluated in mid September due to a large left-sided pleural effusion. At that time the patient had a thoracentesis done and results of the pleural fluid analysis were concerning for malignancy. After initial thoracentesis the patient's left- sided pleural effusion reaccumulated approximately 5 weeks after requiring another thoracentesis. He was seen in the radiology outpatient procedure unit today by Dr. Staton for a bronchoscopy however an x-ray prior to the procedure showed reaccumulation of the effusion on the left side. The patient is an active individual and is currently asymptomatic without any complaints of shortness of breath. I was called by Dr. Staton to evaluate the patient and admit him given the large left-sided pleural effusion which is likely malignant. Patient denies any chest pain, no diarrhea, no fevers or chills. Past medical history diabetes mellitus type 2 Past surgical history none Family history noncontributory Social history the patient previously smoked possibly 1 pack/day for almost 10 years however quit 38 years ago. He drinks 1-2 beers per week. 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 12/26 Chest tube with 300 mL's overnight. Keep in place Ambulate and incentive spirometry Reevaluate tomorrow 12/27 chest drained 125/ 24 hrs eval for possible removal later today continue pulm toileting discussed with Dr Staton path : LEFT PLEURA, BIOPSY: METASTATIC ADENOCARCINOMA, CONSISTENT WITH LUNG PRIMARY. oncologist Dr Jose Vasquez 12/28 chest tube removed, stable CXR stable for dc , on room air - Time Spent with Patient Total time spent providing and/or coordinating discharge services: Greater than 30 minutes - Quality: VTE Deep Vein Thrombosis/Pulmonary Embolism Present on Admission: No Exam Vital signs: Vital Signs 12/27/17 13:00 12/27/17 14:00 12/27/17 15:00 Temperature Pulse Rate 104 H 96 H 101 H Respiratory Rate Blood Pressure Pulse Oximetry 12/27/17 16:00 12/27/17 17:00 12/27/17 18:00 Temperature 98.1 F Pulse Rate 100 H 108 H 104 H Respiratory Rate 18 Blood Pressure 107/66 Pulse Oximetry 96 12/27/17 19:00 12/27/17 20:00 12/27/17 20:07 Temperature 98.5 F Pulse Rate 96 H 91 H 96 H Respiratory Rate 19 Blood Pressure 112/63 Pulse Oximetry 97 12/27/17 21:00 12/27/17 22:00 12/27/17 23:00 Temperature Pulse Rate 90 87 93 H Respiratory Rate Blood Pressure Pulse Oximetry 12/28/17 00:00 12/28/17 01:00 12/28/17 02:00 Temperature 98.5 F Pulse Rate 92 H 92 H 105 H Respiratory Rate 18 Blood Pressure 128/62 Pulse Oximetry 97 12/28/17 03:00 12/28/17 04:00 12/28/17 05:00 Temperature 98.4 F Pulse Rate 86 96 H 87 Respiratory Rate 18 Blood Pressure 122/66 Pulse Oximetry 97 12/28/17 06:00 12/28/17 07:00 12/28/17 08:00 Temperature 98.2 F Pulse Rate 77 77 82 Respiratory Rate 18 Blood Pressure 118/64 Pulse Oximetry 95 12/28/17 09:00 12/28/17 10:00 Temperature Pulse Rate 92 H 116 H Respiratory Rate Blood Pressure Pulse Oximetry Intake & Output 12/27/17 12/28/1712/28/18 18:59 06:59 18:59 Intake Total 840 / 840 240 / 240 Output Total 700 / 700 100 / 100 Balance 140 / 140 140 / 140 Weight 62.5 kg Intake: Oral 840 / 840 240 / 240 Output: Urine 550 / 550 Chest Tube Drainage 150 / 150 100 / 100 #1 Left 150 / 150 100 / 100 Other: # Voids 6 3 Date of Last Bowel Movement 12/27/17 12/27/17 12/26/17 # Bowel Movements 3 - Constitutional no acute distress - Routine HEENT Exam Head: Present: normocephalic, atraumatic Eye: Present: EOMI, PERRL, normal accommodation - Routine Neck Exam Present: full ROM - Routine Chest/Breast/Axilla Exam Chest wall: Present: tenderness - Routine Respiratory Exam Comments: diminished left base - Routine Cardiovascular Exam Present: RRR, S1, S2 - Routine Abdominal Exam Present: soft, normoactive bowel sounds - Routine Extremities Exam Present: full ROM, pulses intact, normal capillary refill - Routine Skin Exam Present: intact Comments: left chest dressing in place - Routine Neurological Exam Present: alert, oriented X3, CN II-XII intact Results Procedures completed during hospitalization: Date of procedure: 12/23/17 Procedure: Left thoracoscopic exploration for drainage of malignant pleural effusion, pleural biopsies, talc pleurodesis Labs on day of discharge: Labs from last 24 hours 12/28/17 12/28/17 12/27/17 11:38 08:17 21:46 WBC RBC Hgb Hct MCV MCH MCHC RDW Plt Count MPV Neut % (Auto) Lymph % (Auto) Clarke % (Auto) Eos % (Auto) Baso % (Auto) Neut # (Auto) Lymph # (Auto) Clarke # (Auto) Eos # (Auto) Baso # (Auto) WBC Differential Differential Comment Sodium Potassium Chloride Carbon Dioxide Anion Gap BUN Creatinine Estimated GFR POC Glucose 122 H 139 H 126 H Random Glucose Calcium Magnesium 12/27/17 12/27/17 12/27/17 17:04 13:27 13:27 WBC 8.3 RBC 4.08 L Hgb 13.3 Hct 38.0 L MCV 93.1 MCH 32.7 MCHC 35.1 RDW 13.4 Plt Count 233 D MPV 9.1 Neut % (Auto) 71.0 H Lymph % (Auto) 19.6 Clarke % (Auto) 7.5 Eos % (Auto) 1.5 Baso % (Auto) 0.4 Neut # (Auto) 5.9 Lymph # (Auto) 1.6 Clarke # (Auto) 0.6 Eos # (Auto) 0.1 Baso # (Auto) 0.0 WBC Differential . Differential Comment Auto diff final Sodium 140 Potassium 4.2 Chloride 102 Carbon Dioxide 29.6 Anion Gap 8 BUN 19 H Creatinine 1.14 Estimated GFR 64 L POC Glucose 158 H Random Glucose 141 H Calcium 9.2 Magnesium 2.1 12/27/17 11:51 WBC RBC Hgb Hct MCV MCH MCHC RDW Plt Count MPV Neut % (Auto) Lymph % (Auto) Clarke % (Auto) Eos % (Auto) Baso % (Auto) Neut # (Auto) Lymph # (Auto) Clarke # (Auto) Eos # (Auto) Baso # (Auto) WBC Differential Differential Comment Sodium Potassium Chloride Carbon Dioxide Anion Gap BUN Creatinine Estimated GFR POC Glucose 154 H Random Glucose Calcium Magnesium - Impressions ITS Impressions Chest X-Ray 12/28/17 11:00 CONCLUSION: Small loculated pneumothorax above the left costophrenic angle. Discharge Plan - Discharge Disposition Patient Disposition: 01 Discharge Home - Discharge Condition Condition: Good - Discharge Order Discharge Orders: Discharge Order (Routine); Ordered 12/28/17 Ordered By: Chantel Guerrero - Discharge Details Anticipated Discharge Date: 12/28/17 - Physicians Team Attending Provider: Maria Luz Rose Other Providers: Maria Luz Rose MD ; Adams Staton MD ; Lawrence Clark MD ; Nataliya Caldera - Rxs /Orders / Referrals /Forms Prescriptions: New docusate sodium [Colace] 100 mg Capsule 100 mg PO BID Qty: 60 RF: 0 hydrocodone-acetaminophen 5-325 mg Tablet 1 tab PO Q4H PRN (Reason: Pain Scale 3 To 5) Qty: 40 RF: 0 Continue ascorbate [id number] [Vitamin C] 1,000 mg Powder Effervescent In Packet 2 gm PO DAILY cholecalciferol (vitamin D3) [Vitamin D3] 5,000 unit Tablet 5,000 unit PO DAILY cinnamon bark [Cinnamon] 500 mg Capsule 2 cap PO DAILY coenzyme Q10 [Co Q-10] 100 mg Capsule 100 mg PO DAILY metformin 500 mg Tablet 500 mg PO BID vitamin B complex Tablet 1 tab PO DAILY Ambulatory Orders / Order Sets / DME: XR chest 2V PA&LAT (Routine) Timeframe: 1 Week Location: Determined by Patient Ordered By: Chantel Guerrero Referrals: EarelneTanmay daley [Other] - See Instructions ( Your appointment has been scheduled for [12/29/17] at [3:20 pm] If you cannot make this appointment, please call the office to reschedule ) Shirlene Richardson MD [Physician] - See Instructions ( Your appointment has been scheduled for [01/04/18] at [3:30 PM] If you cannot make this appointment, please call the office to reschedule ) Jose Vasquez MD [Physician] - See Instructions ( Your appointment has been scheduled for [01/19/18] at [2:20 PM] If you cannot make this appointment, please call the office to reschedule ) Adams Staton MD [Physician] - See Instructions ( Your appointment has been scheduled for [01/20/18] at [10:15 am] If you cannot make this appointment, please call the office to reschedule ) - Discharge Instructions Additional Instructions: Incentive spirometry Q1 hr x 10, while awake, also use acapella device hourly whole Chest wall precautions: NO pushing or pulling, ( pt must use chest pillow support chest with all activities and with coughing Daily incision care: ok to shower ( 48hrs after chest tube removed) and then daily, no tub bath. Wash all incisions with liquid dial soap, clean wash cloth to each site, rinse and pat dry. Observe for any signs of infection, such as drainage which is dark yellow, alanis, green or foul smelling. Immediately report to the surgeon any drainage from the chest incision, or legs, and for any abnormal drainage from the chest tube sites. Notify surgeon if any temp > 101.5 degrees F. When specialty dressing removed/ or if you do not have one, continue to shower daily as above, then rinse and pat incision dry and paint with betadine daily x 5 days. Allow steri strips to fall off if you have any. Avoid lotions, creams, salves, oils, etc. for the first month For Dr. Richardson patients , please obtain PA & Lat CXR in 2 weeks, results to Dr. Richardson ( prescription will be given) ( ) (Tele: ) , F/U appointment: as per DC instructions: PCP in 2 weeks, CV surgeon 2 weeks, Time Study Analyst 3-4 weeks For any questions regarding incisions/ dressing / meds / post op care or above Symptoms, Wednesday 8am-5pm Heart & Vascular Surgery Office ( Dr. Rose & Dr. Richardson), After Hours / Nights (5pm -8am) Weekends and Holidays Please call [facility] Cardiac Intermediate Care Unit (C[facility]) Charge Nurse
== END 2017-12-28 13:30 | disposition home or self-care (01) ==
LOC: HRAD 11:43 → HRIP 11:43 → N05 15:47 → HCIS 12-23 12:06 → HCPC 12-23 19:11
PROVIDERS: ADMIT Thoracic Surgery (Cardiothoracic Vascular Surgery); ATTEND Thoracic Surgery (Cardiothoracic Vascular Surgery)